=== PATIENT | female | born 1980 | race Caucasian/White ===

== ENCOUNTER 2016-09-28 07:40 | Inpatient (IN) | payer BC ==
[~2016-09-28] VITALS: Ht 170.2 cm; Wt 54.5 kg
[~2016-09-28 07:40] MED LIST: PRENTAB26 PO
[2016-09-28] MEDS ORDERED: LACTATED RINGER'S 1000ML 1,000 ML IV SCH (08:15)
[2016-09-28] MEDS ORDERED: LACTATED RINGER'S 1000ML 1,000 ML IV PRN (08:15)
[2016-09-28] MEDS: MISOPROSTOL 200 MCG TAB PV SCH ×4 (09:10→21:00)
[2016-09-28 09:20] LABS: HEMATOCRIT 35.6 % (37-47); MEAN CELL VOLUME 92.7 fL (80-100); MEAN CORPUSCULAR HEMOGLOBIN 33.1 pg (25-34); MEAN CORPUSCULAR HGB CONC 35.7 g/dl (32-36); MEAN PLATELET VOLUME 10.3 fL (7.4-10.4); PLATELET COUNT 264 K/uL (130-400); RED BLOOD COUNT 3.84 M/uL (4.2-5.4); WHITE BLOOD COUNT 9.09 K/uL (4.8-10.8)
[2016-09-28 09:42] LABS: ALT/SGPT 13 U/L (12-78); BLOOD UREA NITROGEN 7 mg/dl (7-18); BUN/CREATININE RATIO 13.2 (10-20); CALCIUM 9.2 mg/dl (8.5-10.1); CARBON DIOXIDE 23 mmol/L (21-32); CHLORIDE 106 mmol/L (98-107); CREATININE 0.53 mg/dl (0.60-1.20); GLUCOSE 79 mg/dl (70-99); POTASSIUM 3.8 mmol/L (3.5-5.1); SODIUM 140 mmol/L (136-145)
[2016-09-28 09:45] LABS: ALB/GLOB RATIO 0.9 (0.9-2); ALKALINE PHOSPHATASE 62 U/L (45-117); AST/SGOT 15 U/L (15-37)
[2016-09-28 10:34] VITALS: Ht 170.2 cm; Wt 54.5 kg
[2016-09-28] MEDS ORDERED: MISOPROSTOL 25 MCG TAB PV SCH (12:00)
[2016-09-28] MEDS ORDERED: BUPIVACAINE 0.25% 30 ML VIAL ONE ×2 (15:00→15:21)
[2016-09-28] MEDS ORDERED: FENTANYL 2MCG/ML ROPIV 1.25MG/ML 100ML BAG EPI ONE ×2 (15:01→15:22)
[2016-09-28] MEDS ORDERED: EpHEDrine SULFATE INJ 50 MG/ML AMP ONE ×2 (15:01→15:21)
[2016-09-28] MEDS ORDERED: FENTANYL CITRATE INJ 50 MCG/1 ML 2 ML VIAL ONE ×2 (15:01→15:22)
[2016-09-28] MEDS ORDERED: OXYTOCIN 30 UNITS/500ML NSS IV ONE (15:14)
[2016-09-28] MEDS ORDERED: LACTATED RINGER'S 1000ML 500 ML IV PRN ×2 (15:50→16:23)
[2016-09-28] MEDS ORDERED: NALOXONE HCL INJ 1 MG in SODIUM CHLORIDE 0.9% 1000ML 1,000 ML IV PRN ×8 (15:50→16:23)
[2016-09-28] MEDS ORDERED: NALBUPHINE HCL INJ 10 MG/ML AMP IV PRN ×2 (16:00→16:30)
[2016-09-28] MEDS ORDERED: PROMETHAZINE HCL INJ 25 MG in SODIUM CHLORIDE 0.9% 50ML 50 ML IV PRN ×2 (16:00→16:30)
[2016-09-28] MEDS ORDERED: NALOXONE HCL INJ 0.4 MG/1 ML VIAL/CARP IV PRN ×2 (16:00→16:30)
[2016-09-28] MEDS ORDERED: DiphenhydrAMINE HCL 50 MG/ML VIAL IV PRN ×2 (16:00→16:30)
[2016-09-28] MEDS ORDERED: FENTANYL 2MCG/ML ROPIV 1.25MG/ML 100ML BAG EPI PRN ×2 (16:00→16:30)
[2016-09-28] MEDS ORDERED: EpHEDrine SULFATE INJ 50 MG/ML AMP IV PRN ×2 (16:00→16:30)
[2016-09-28] MEDS ORDERED: ONDANSETRON INJ 2 MG/ML 2 ML VIAL IV PRN ×2 (16:00→16:30)
[2016-09-28] MEDS ORDERED: OXYTOCIN IV SCH (17:00)
[2016-09-28] MEDS ORDERED: SODIUM CHLORIDE 0.9% IV SCH (17:00)
[2016-09-28] MEDS ORDERED: IBUPROFEN 600 MG TAB PO PRN (19:30)
[2016-09-28] MEDS ORDERED: ACETAMINOPHEN 325 MG TAB PO PRN (19:30)
[2016-09-28] MEDS ORDERED: OXYCODONE/ACETAMINOPHEN 5-325 TAB PO PRN (19:30)
--- NOTE | 2016-09-28 19:54 | Anesthesia Procedure Note ---
Anesthesia Epidural Removal Nt Date & Time Sep 28, 2016 at 19:53 Vital Signs Pain Intensity: 8.0 Notes Mental Status: alert / awake / arousable, participated in evaluation Nausea / Vomiting: adequately controlled Pain: adequately controlled Airway Patency, RR, SpO2: stable & adequate BP & HR: stable & adequate Hydration State: stable & adequate Neuraxial Anesthesia: was administered Anesthetic Complications: no major complications apparent, pt satisfied with anesthetic care Epidural: removed without complications, with tip intact
[2016-09-28 23:30] VITALS: BP 97/59; PULSE 73; TEMP 36.9
[2016-09-29] MEDS: MISOPROSTOL 200 MCG TAB PV SCH (01:00)
[2016-09-29 04:00] VITALS: BP 92/55; PULSE 68; TEMP 36.7
[2016-09-29] MEDS: PRENATAL VITAMIN TAB PO SCH ×2 (08:00→08:24)
--- NOTE | 2016-09-29 08:13 | Progress Note ---
Subjective Sep 29, 2016. Subjective conversation w/ patient, physical exam, chart review Ambulation: ambulating normally Voiding: no voiding problems Passing Gas: Yes Diet Tolerance: Regular Diet Lochia: Moderate Pain: Minimally crampy. Not requiring narcotics. No milk coming in at this time Review of Systems Constitutional: No chills, No fever Cardiac: No chest pain Breast: No problem reported Abdomen: No nausea, No vomiting Female : No problem reported Objective Vital Signs Date Time Temp Pulse Resp B/P Pulse Ox O2 Delivery O2 Flow Rate FiO2 09/29/16 04:00 Room Air 09/29/16 04:00 36.7 68 18 92/55 09/28/16 23:30 Room Air 09/28/16 23:30 36.9 73 97/59 Physical Exam General Appearance: WELL-APPEARING, NO APPARENT DISTRESS (physically comfortable. appropriately tearful. at bedside comforting patient.) Respiratory/Chest: no respiratory distress, no accessory muscle use Cardiovascular: no edema Abdomen: non tender, soft Fundus: Firm Extremities: no calf tenderness Laboratory Results Last 24 Hours Test 09/28/16 08:57 09/28/16 09:20 09/28/16 19:23 09/29/16 04:44 White Blood Count 9.09 K/uL Red Blood Count 3.84 M/uL Hemoglobin 12.7 g/dL Hematocrit 35.6 % Mean Corpuscular Volume 92.7 fL Mean Corpuscular Hemoglobin 33.1 pg Mean Corpuscular Hemoglobin Concent 35.7 g/dl RDW Standard Deviation 43.9 fL RDW Coefficient of Variation 13.0 % Platelet Count 264 K/uL Mean Platelet Volume 10.3 fL Sodium Level 140 mmol/L Potassium Level 3.8 mmol/L Chloride Level 106 mmol/L Carbon Dioxide Level 23 mmol/L Anion Gap 11.0 mmol/L Blood Urea Nitrogen 7 mg/dl Creatinine 0.53 mg/dl Estimated GFR () 142.6 Estimated GFR (Non- 123.0 BUN/Creatinine Ratio 13.2 Random Glucose 79 mg/dl Calcium Level 9.2 mg/dl Total Bilirubin 0.3 mg/dl Direct Bilirubin < 0.1 mg/dl Aspartate Amino Transf (AST/SGOT) 15 U/L Alanine Aminotransferase (ALT/SGPT) 13 U/L Alkaline Phosphatase 62 U/L Total Protein 6.7 gm/dl Albumin 3.1 gm/dl Globulin 3.6 gm/dl Albumin/Globulin Ratio 0.9 Assessment and Plan Post- Day#: 1 Continue Routine Care: PPD#1 IOL--> of IUFD at 20wk. Recovering well without excessive lochia, cramping well controlled, and so far no evidence of . Emotional support provided and lengthy conversation this morning about appropriate grief response vs watching for signs of PPD. No SI/HI at this time. Appears to have excellent support system and a very healthy grief response with appropriate tearfulness and a good deal of peace and acceptance of the events that have occurred. Declines counseling, SSRI or sleep aid / benzo at this time, aware she can call us at any time to receive help with the ups and downs that are surely to come in the days ahead. Rh negative - discussion with Dr. Pablo by phone at 2300 last night. Order for T&S and Rhophylac placed yesterday AM by myself. 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 Orders for K-B placed by blood bank yesterday without my knowledge, and Rhophylac canceled similarly. Discussion yesterday revealed that the reasoning on their end was there is no cr to administer Rhogam given the positive screen (whether it represents leftover rhogam from 06/09/16 or sensitization) and the K-B can help determine the size of dose most appropriate to give today, if any. Will move forward with that plan, K-B pending at this time.
--- NOTE | 2016-09-29 08:30 | Discharge Instructions ---
Discharge Instructions Admission Reason for Admission: Induction, Demise Discharge Discharge Diagnosis / Problem: demise at 20 wk Discharge Goals Goal(s): Specific goals Activity Recommendations Activity Limitations: resume your previous activity Lifting Limitations: none Exercise/Sports Limitations: none May Resume Sexual Activity: after follow-up appointment . Instructions / Follow-Up Instructions / Follow-Up . ACTIVITY RECOMMENDATIONS: * Vaginal rest (no tampons, douching, intercourse) until after doctor 's visit. * control as discussed with doctor. * Wear a bra for 24 hours/day for comfort. SPECIAL CARE INSTRUCTIONS: Medications: * vitamins, one tablet daily. Continue taking until prescription is complete. Call you doctor if: * Temperature greater than or equal to 100.4 degrees F or 38.0 degrees C. * Bleeding becomes heavier than the heaviest part of your period - saturating a sanitary pad within an hour. * Passing large clots. * Unrelieved pain. * Bleeding has a foul smelling odor. * Signs and symptoms of phlebitis: leg pain, warm, red or swollen area on leg. incision has increased pain, redness, swelling, presence of any drainage, or if the incision starts to open up. FOLLOW UP VISIT: If appointment is not already scheduled: Please call doctor's office to schedule a follow-up appointment. Current Hospital Diet Patient's current hospital diet: Regular OB Diet Discahrge Diet Recommended Diet: Regular Diet Pending Studies Studies pending at discharge: no Medical Emergencies . Who to Call and When: Medical Emergencies: If at any time you feel your situation is an emergency, please call 911 immediately. . Non-Emergent Contact Non-Emergency issues call your: Primary Care Provider . . "Provider Documentation" section prepared by Caro Rao. VTE Core Measure Inpt VTE Proph given/why not?: Treatment not indicated
[2016-09-29 08:31] LABS: HEMATOCRIT 35.7 % (37-47)
[2016-10-01 13:23] LABS: CYTOMEGALOVIRUS IGG AB <0.91; HERPES SIMPLEX AB IGG-1 0.05; HERPES SIMPLEX AB IGG-2 0.02
--- NOTE | 2016-10-07 08:24 | DISCHARGE SUMMARY ---
REASON FOR ADMISSION: Kecia Martines is a 36-year-old who was undergoing care with our group and presented for an anatomy scan at roughly 20 weeks and unfortunately it was found at that time to have an intrauterine demise. The patient was counseled on her options and they elected to present for induction of labor. The following morning, she was received on labor and delivery, intrauterine demise was again confirmed by ultrasound and the patient was started on 400 mcg of Cytotec vaginally. This was repeated x1 dose after which the fetus delivered spontaneously. IV drip Pitocin was then given which led to delivery of the placenta spontaneously several hours later. Lochia from this point forward was minimal. Kecia's pain was well controlled and she was assisted in a very normal grief response and the creation of a memory chest by the nurses. On day #1, her bleeding remained minimal. The patient's pain was well controlled. She requested to be discharged to home. The patient was administered 1 unit of RhoGAM due to Rh negative status. Her post-procedure hemoglobin was 12.9. She was in stable clinical condition and again undergoing a normal grief response with no signs of severe depression and no homicidal or suicidal ideations at the time of her discharge.
== END 2016-09-29 10:57 | disposition home or self-care (01) | DRG 779 ==
LOC: C.LD 07:40
PROVIDERS: ADMIT Obstetrics & Gynecology; ATTEND Obstetrics & Gynecology
PROC: 3E0P7GC Introduction of Other Therapeutic Substance into Female Reproductive, Via Natural or Artificial Opening (ICD-10-PCS; principal; 2016-09-28)
PROC: 10E0XZZ Delivery of Products of Conception, External Approach (ICD-10-PCS; principal; 2016-09-28)
DX: O02.1 Missed abortion (principal); O24.429 Gestational diabetes mellitus in childbirth, unspecified control; O26.892 Other specified pregnancy related conditions, second trimester; Z67.91 Unspecified blood type, Rh negative; Z37.1 Single stillbirth; Z3A.19 19 weeks gestation of pregnancy

== ENCOUNTER → 2016-10-04 | Outpatient (CLI) | payer BC ==
[2016-10-04 14:49] LABS: URINE APPEARANCE CLOUDY (CLEAR); URINE BILIRUBIN NEG (NEG); URINE COLOR YELLOW; URINE EPITHELIAL CELL AUTO >30 /lpf (0-5); URINE NITRITE POS (NEG); URINE SPECIFIC GRAVITY 1.013 (1.000-1.030); UROBILINOGEN NEG (NEG)
[2016-10-04 14:59] LABS: MANUAL MICROSCOPIC REQUIRED? NO; REVIEW REQ? NO
== END | disposition home or self-care (01) ==
LOC: C.LABSPEC 14:02
PROVIDERS: ATTEND Obstetrics & Gynecology
DX: N39.0 Urinary tract infection, site not specified (principal)

== ENCOUNTER → 2017-01-20 | Outpatient (CLI) | payer BC ==
[2017-01-20 16:42] LABS: URINE APPEARANCE CLEAR (CLEAR); URINE BILIRUBIN NEG (NEG); URINE COLOR YELLOW; URINE EPITHELIAL CELL AUTO >30 /lpf (0-5); URINE NITRITE NEG (NEG); URINE PH 7.5 (4.5-7.5); UROBILINOGEN NEG (NEG)
[2017-01-20 16:45] LABS: MANUAL MICROSCOPIC REQUIRED? NO; REVIEW REQ? NO
== END | disposition home or self-care (01) ==
LOC: C.LABSPEC 16:05
PROVIDERS: ATTEND Obstetrics & Gynecology
DX: O09.521 Supervision of elderly multigravida, first trimester (principal)

== ENCOUNTER → 2017-01-25 | Outpatient (CLI) | payer BC | END | disposition home or self-care (01) | LOC: C.PAPS 14:24 | PROVIDERS: ATTEND Obstetrics & Gynecology | DX: O09.521 Supervision of elderly multigravida, first trimester (principal); Z3A.00 Weeks of gestation of pregnancy not specified ==

== ENCOUNTER → 2017-01-25 | Outpatient (CLI) | payer BC ==
[2017-01-28 11:39] LABS: CHLAMYDIA TRACH RNA*** NOT DETECTED (NOT DETECTED); GC (NEIS GONORRHOEAE)RNA** NOT DETECTED (NOT DETECTED)
== END | disposition home or self-care (01) ==
LOC: C.LABSPEC 13:31
PROVIDERS: ATTEND Obstetrics & Gynecology
DX: O09.521 Supervision of elderly multigravida, first trimester (principal)

== ENCOUNTER → 2017-06-17 | Outpatient (CLI) | payer BC ==
[2017-06-17 14:30] LABS: URINE APPEARANCE CLEAR (CLEAR); URINE BILIRUBIN NEG (NEG); URINE COLOR YELLOW; URINE NITRITE NEG (NEG); URINE PH 8.5 (4.5-7.5); URINE SPECIFIC GRAVITY 1.012 (1.000-1.030); UROBILINOGEN NEG (NEG)
[2017-06-17 14:34] LABS: MANUAL MICROSCOPIC REQUIRED? YES; REVIEW REQ? NO
[2017-06-17 14:48] LABS: URINE BACTERIA NEG (NEG); URINE RBC 0-4 /hpf (0-4); URINE WBC 0 /hpf (0-5)
== END | disposition home or self-care (01) ==
LOC: C.LABSPEC 13:25
PROVIDERS: ATTEND Obstetrics & Gynecology
DX: O09.522 Supervision of elderly multigravida, second trimester (principal); Z3A.00 Weeks of gestation of pregnancy not specified

== ENCOUNTER 2018-01-09 22:34 | Emergency (ER) | payer BC, OTHER ==
[~2018-01-09] VITALS: Ht 170.2 cm; Wt 60.4 kg
[2018-01-09 22:42] VITALS: TEMP 36.6; Ht 170.2 cm; Wt 60.4 kg
[2018-01-09] MEDS ORDERED: ALBUTEROL 0.083% NEBU SOLN 3 ML VIAL INH STA (23:03)
[2018-01-09 23:34] LABS: BASO % 0.3 %; BASO ABS # 0.02 K/uL (0-0.2); EOS % 2.5 %; EOS ABS # 0.16 K/uL (0-0.5); HEMATOCRIT 38.6 % (37-47); HEMOGLOBIN 12.8 g/dL (12.0-16.0); IG# 0.02 K/uL (0.00-0.02); LYMPH % 48.7 %; LYMPH ABS # 3.08 K/uL (1.2-3.4); MEAN CELL VOLUME 84.6 fL (80-100); MEAN CORPUSCULAR HEMOGLOBIN 28.1 pg (25-34); MEAN CORPUSCULAR HGB CONC 33.2 g/dl (32-36); MEAN PLATELET VOLUME 9.5 fL (7.4-10.4); MONO % 8.1 %; MONO ABS # 0.51 K/uL (0.11-0.59); NEUT % 40.1 %; NEUT ABS # 2.54 K/uL (1.4-6.5); PLATELET COUNT 291 K/uL (130-400); RED CELL DISTRIBUTION WIDTH CV 15.3 % (11.5-14.5); RED CELL DISTRIBUTION WIDTH SD 46.7 fL (36.4-46.3); WHITE BLOOD COUNT 6.33 K/uL (4.8-10.8)
[2018-01-10 00:08] LABS: CALCIUM 9.1 mg/dl (8.5-10.1); CREATININE 0.88 mg/dl (0.60-1.20); POTASSIUM 3.9 mmol/L (3.5-5.1)
[2018-01-10] MEDS ORDERED: ALBUTEROL HFA 8 GM INHALER INH ONE (00:15)
[2018-01-10 00:51] VITALS: BP 121/85; PULSE 92; O2SAT 100
--- NOTE | 2018-01-10 01:50 | EMERGENCY ROOM VISIT NOTE ---
History Report prepared by Chavo: Presley Pruett Under the Supervision of: Dr. Anselmo Philip D.O. First contact with patient: 22:52 Chief Complaint: RESPIRATORY PROBLEMS Stated Complaint: DIFFICULTY BREATHING - THROAT CLOSING UP History of Present Illness The patient is a 38 year old female who presents to the Emergency Room with complaints of constant throat swelling beginning yesterday. The patient states she had similar symptoms last week and was evaluated by Dr. Echevarria, ENT and had a scope performed. She reports she was told she has seasonal allergies, and her vocal cords were swollen. She states she is currently breast feeding and could not take steroids. 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 She states she is felt better, sang this weekend, and then she was outside again yesterday and today. The patient reports her vocal cords are not inflamed anymore, but it feels like her throat is closing. She notes she is able to eat and drink okay. The patient denies a rash, new medication, chest pain, nausea, vomiting, and diarrhea. Source of History: patient Onset: yesterday Position: throat Quality: other (swelling) Timing: constant Modifying Factors (Worsening): other (being outside) Associated Symptoms: No chest pain, No nausea, No vomiting, No diarrhea, No rash Note: Denies: trouble eating or drinking Review of Systems See HPI for pertinent positives & negatives. A total of 10 systems reviewed and were otherwise negative. Past Medical & Surgical Medical Problems: (1) intrauterine demise Family History Hypertension Kidney disease Kidney stones Social History Smoking Status: Never Smoker Marital Status: Housing Status: lives with family Occupation Status: employed Current/Historical Medications No Active Prescriptions or Reported Meds Allergies Coded Allergies: Dairy (Verified Allergy, Unknown, stomach upset, 01/09/18) Physical Exam Vital Signs Date Time Temp Pulse Resp B/P (MAP) Pulse Ox O2 Delivery O2 Flow Rate FiO2 01/10/18 00:51 92 18 121/85 100 01/09/18 22:42 36.6 90 20 122/86 98 Room Air Physical Exam GENERAL: Sitting up in bed, alert, well appearing, well nourished, no distress, non-toxic EYE EXAM: normal conjunctiva. OROPHARYNX: no exudate, no erythema, lips, buccal mucosa, and tongue normal and mucous membranes are moist NECK: supple, no nuchal rigidity, no adenopathy, non-tender. No stridor. LUNGS: Clear to auscultation. Normal chest wall mechanics HEART: no murmurs, S1 normal and S2 normal ABDOMEN: abdomen soft, non-tender, normo-active bowel sounds, no masses, no rebound or guarding. BACK: Back is symmetrical on inspection and there is no deformity, no midline tenderness, no CVA tenderness. SKIN: no rashes and no bruising UPPER EXTREMITIES: upper extremities are grossly normal. LOWER EXTREMITIES: No pitting edema. NEURO EXAM: Normal sensorium, cranial nerves II-XII grossly intact, normal speech, no gross weakness of arms, no gross weakness of legs. Medical Decision & Procedures ER Provider Diagnostic Interpretation: Radiology results as stated below per my review: Portable one view of the chest: No focal infiltrate. No pneumothorax. 2 view of the neck: No prevertebral swelling. No obvious fracture. Laboratory Results 01/09/18 23:10 Red Blood Count 4.56, Mean Corpuscular Volume 84.6, Mean Corpuscular Hemoglobin 28.1, Mean Corpuscular Hemoglobin Concent 33.2, Mean Platelet Volume 9.5, Neutrophils (%) (Auto) 40.1, Lymphocytes (%) (Auto) 48.7, Monocytes (%) (Auto) 8.1, Eosinophils (%) (Auto) 2.5, Basophils (%) (Auto) 0.3, Neutrophils # (Auto) 2.54, Lymphocytes # (Auto) 3.08, Monocytes # (Auto) 0.51, Eosinophils # (Auto) 0.16, Basophils # (Auto) 0.02 01/09/18 23:10 Test 01/09/18 23:10 White Blood Count 6.33 K/uL (4.8-10.8) Red Blood Count 4.56 M/uL (4.2-5.4) Hemoglobin 12.8 g/dL (12.0-16.0) Hematocrit 38.6 % (37-47) Mean Corpuscular Volume 84.6 fL (80-100) Mean Corpuscular Hemoglobin 28.1 pg (25-34) Mean Corpuscular Hemoglobin Concent 33.2 g/dl (32-36) Platelet Count 291 K/uL (130-400) Mean Platelet Volume 9.5 fL (7.4-10.4) Neutrophils (%) (Auto) 40.1 % Lymphocytes (%) (Auto) 48.7 % Monocytes (%) (Auto) 8.1 % Eosinophils (%) (Auto) 2.5 % Basophils (%) (Auto) 0.3 % Neutrophils # (Auto) 2.54 K/uL (1.4-6.5) Lymphocytes # (Auto) 3.08 K/uL (1.2-3.4) Monocytes # (Auto) 0.51 K/uL (0.11-0.59) Eosinophils # (Auto) 0.16 K/uL (0-0.5) Basophils # (Auto) 0.02 K/uL (0-0.2) RDW Standard Deviation 46.7 fL (36.4-46.3) RDW Coefficient of Variation 15.3 % (11.5-14.5) Immature Granulocyte % (Auto) 0.3 % Immature Granulocyte # (Auto) 0.02 K/uL (0.00-0.02) Anion Gap 3.0 mmol/L (3-11) Est Creatinine Clear Calc Drug Dose 83.5 ml/min Estimated GFR () 97.3 Estimated GFR (Non- 83.9 BUN/Creatinine Ratio 14.2 (10-20) Calcium Level 9.1 mg/dl (8.5-10.1) Chemistry Specimen Hemolysis Laboratory results per my review. Medications Administered Medications (Trade) Dose Ordered Sig/Graham Route Start Time Stop Time Status Last Admin Dose Admin Albuterol Sulfate (Ventolin 0.083% 2.5MG/3ML Neb) 2.5 mg NOW STAT INH 01/09/18 23:03 01/09/18 23:05 DC 01/09/18 23:18 2.5 MG Albuterol (Ventolin Hfa Inhaler) 2 puffs NOW ONCE INH 01/10/18 00:15 01/10/18 00:16 DC 01/10/18 00:23 2 PUFFS ECG Per My Interpretation Indication: SOB/dyspnea Rate (beats per minute): 70 Rhythm: sinus rhythm Findings: no ectopy, other (Normal axis) ED Course ED COURSE: Vital signs were reviewed and showed normal vitals. The patients medical record was reviewed The above diagnostic studies were performed and reviewed. ED treatments and interventions as stated above. 2256: The patient was evaluated in room B09. A complete history and physical examination was performed. 2303: Ordered Albuterol Sulfate 2.5mg INH 0015: Ordered Albuterol 2 puffs INH 0016: Upon reevaluation, the patient is resting comfortably.I discussed my findings with the patient and she understands and agrees with the treatment plan. Based on the patients age, coexisting illnesses, exam and lab findings the decision to treat as an outpatient was made. The patient remained stable while under my care. The patient appeared well at the time of discharge. Medical Decision Differential diagnoses includes but is not limited to pneumonia, bronchitis, COPD/Asthma exacerbation, pneumothorax, pulmonary embolism, congestive heart failure, acute coronary syndrome. Patient is a 38-year-old female who presents the ER for swelling in her throat. She has no other complaints at this time. No fevers. She notes she had the same symptoms and was scoped by Dr. Echevarria. For the same symptoms. She was diagnosed with allergies likely causing the symptoms. CBC along with BMP was unremarkable. Chest x-ray and soft tissue of the neck was unremarkable. Patient was given albuterol treatment and had near complete resolution of her symptoms. Declined steroids as she is breast-feeding. She was discharged to follow-up with PCP as an outpatient. Discussed with Pt concerning signs and symptoms to watch out for. Pt was instructed to follow up with their PCP and discussed with the patient their option to return to the ED at anytime for persistent or worsening symptoms. The appropriate anticipatory guidance and out- patient management, including indications for return to the emergency department , were explained at length to the patient and understood. Medication Reconcilliation Current Medication List: was personally reviewed by me Blood Pressure Screening Patient's blood pressure: Normal blood pressure Blood pressure disposition: Did not require urgent referral Impression Primary Impression: Shortness of breath Scribe Attestation The scribe's documentation has been prepared under my direction and personally reviewed by me in its entirety. I confirm that the note above accurately reflects all work, treatment, procedures, and medical decision making performed by me. Departure Information Dispostion Home / Self-Care Prescriptions No Active Prescriptions or Reported Meds Referrals Jesus Peck M.D. (PCP) Forms HOME CARE DOCUMENTATION FORM, IMPORTANT VISIT INFORMATION, WORK / SCHOOL INSTRUCTIONS Patient Instructions ED Dyspnea Shortness of Breath, [facility] Additional Instructions Please follow up with your primary care doctor with in the next 24 hours. Any worsening of your symptoms, please return to the ED immediately. This includes any fevers greater than 100.4, worsening pain, chest pain, trouble swallowing, shortness breath, persistent nausea, vomiting, unable to eat or drink, or any other concerning signs or symptoms from your standpoint. Please use your inhaler every 6 hours as needed with 2 puffs.
--- NOTE | 2018-01-10 07:36 | DIAGNOSTIC IMAGING REPORT ---
CHEST ONE VIEW PORTABLE CLINICAL HISTORY: 38 years-old Female presenting with sob . TECHNIQUE: PA view of the chest was obtained. COMPARISON: None. FINDINGS: Cardiomediastinal silhouette normal. Lungs and pleural spaces clear. Mild dextrocurvature of the lower thoracic spine. Upper abdomen normal. IMPRESSION: 1. No acute cardiopulmonary disease. Electronically signed by: Juan José Velasquez M.D. 01/10/2018 7:34 AM Dictated Date/Time: 01/10/2018 7:33 AM
--- NOTE | 2018-01-10 07:37 | DIAGNOSTIC IMAGING REPORT ---
SOFT TISSUE NECK CLINICAL HISTORY: 38 years-old Female presenting with neck tightness . TECHNIQUE: Frontal and lateral views of the neck were obtained. COMPARISON: None. FINDINGS: No prevertebral soft tissue swelling. No effacement of the airway. The epiglottis and aryepiglottic folds are normal. No radiopaque foreign body. Straightening of normal cervical lordosis. No radiographic evidence of fracture or subluxation. Visualized portion of the lung apices clear. IMPRESSION: 1. Normal radiographic examination of the soft tissues of the neck. 2. Straightening of cervical lordosis could be positional or indicate muscle spasm. Electronically signed by: Juan José Velasquez M.D. 01/10/2018 7:36 AM Dictated Date/Time: 01/10/2018 7:35 AM
== END 2018-01-10 00:52 | disposition home or self-care (01) ==
LOC: C.EDB 22:36
DX: R06.02 Shortness of breath (principal); Z87.09 Personal history of other diseases of the respiratory system; Z88.9 Allergy status to unspecified drugs, medicaments and biological substances; Z91.011 Allergy to milk products